=== PATIENT | female | born 1990 | race Hispanic/Latino ===

== ENCOUNTER 2020-10-16 19:21 | Emergency (ER) | payer SELFPAY ==
[2020-10-16] MEDS ORDERED: ONDANSETRON 4 MG/2 ML VIAL ONE (21:21)
[2020-10-16] MEDS ORDERED: DIAZEPAM 10 MG/2 ML INJ SYRINGE ONE (21:21)
[2020-10-16] MEDS ORDERED: dexAMETHasone 10 MG/ML VIAL ONE (21:21)
[2020-10-16] MEDS ORDERED: NA CHLORIDE 0.9% 500 ML ONE (21:22)
[2020-10-16] MEDS ORDERED: LEVALBUTEROL 1.25 MG/3 ML NEB ONE (21:22)
[2020-10-16] MEDS ORDERED: Magnesium Sulfate 2gm IVPB 2 G/50 ML BAG IV ONE (21:22)
[2020-10-16 21:50] LABS: Absolute Lymphocytes (CBC) 1.1 K/uL (0.7-4.9); Basophils % 0.3 % (0-1.3); Hematocrit 39.6 % (36.0-45.0); Lymphocytes % 19.5 % (15.3-44.8); MPV 9.1 fL (7.6-11.3); RBC Red Blood Cell Count 4.23 M/uL (3.86-4.86)
[2020-10-16 22:13] LABS: BUN Blood Urea Nitrogen 11 mg/dL (7-18); Bicarbonate 26 mmol/L (21-32); Glucose Level 97 mg/dL (74-106); Potassium 3.6 mmol/L (3.5-5.1); Sodium Level 135 mmol/L (136-145)
[2020-10-16 22:36] LABS: Urine Blood 2+ (Negative); Urine Glucose Negative (Negative); Urine Protein Trace (Negative)
--- NOTE | 2020-10-16 23:51 | EDPHYS ---
Physician Documentation [facility] Name: Xiomara London Age: 30 yrs Sex: Female : 1990 Arrival Date: 10/16/2020 Time: 19:30 Bed 5 Private MD: ED Physician Sheng Alvarez HPI: 10/16 20:29 This 30 yrs old Female presents to ER via Ambulatory with complaints of jmm COVID+, Fever, Cough, Shortness Of Breath, Chest Pain. 20:29 The patient has shortness of breath at rest. Onset: The symptoms/episode began/occurred jm gradually, 10 day(s) ago. Duration: The symptoms are continuous, and are markedly worse than the original presentation. The patient's shortness of breath is aggravated by nothing, is alleviated by nothing. Associated signs and symptoms: Pertinent positives: non-productive cough. This is a 30 year old female with a history of asthma recently diagnosed with coronavirus that presents to the ED with complaints of cough, shortness of breath beginning diagnosis for coronavirus. Complains of shortness of breath, cough, increasing chest tightness. . 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 - Social history:: Smoking status: Patient denies any tobacco usage or history of. ROS: 20:29 Constitutional: Positive for body aches, chills, fatigue, fever. jmm 20:29 Respiratory: Positive for cough, shortness of breath. 20:29 All other systems are negative. Exam: 20:29 Constitutional: This is a well developed, well nourished patient who is awake, alert, jmm and in no acute distress. Head/Face: atraumatic. Eyes: EOMI, no conjunctival erythema appreciated ENT: Moist Mucus Membranes Neck: Trachea midline, Supple Chest/axilla: Normal chest wall appearance and motion. 20:29 Abdomen/GI: Non distended, soft Back: Normal ROM 20:29 Skin: General appearance color normal MS/ Extremity: Moves all extremities, no obvious deformities appreciated, no edema noted to the lower extremities Neuro: Awake and alert, normal gait Psych: Behavior is normal, Mood is normal, Patient is cooperative and pleasant 20:29 Cardiovascular: Rate: normal, Rhythm: regular, Pulses: no pulse deficits are appreciated. 20:29 Respiratory: the patient does not display signs of respiratory distress, Respirations: normal, Breath sounds: are clear throughout. Vital Signs: 19:39 BP 120 / 90; Pulse 120; Resp 20; Temp 99.7(O); Pulse Ox 96% on R/A; Weight 74.84 kg; vg1 Height 5 ft. 2 in. (157.48 cm); Pain 10/10; 21:46 BP 119 / 86; Pulse 109; Resp 18; Pulse Ox 99% ; ea 10/17 00:25 BP 120 / 78; Pulse 80; Resp 19; Temp 98.7; Pulse Ox 99% on R/A; ea 10/16 19:39 Body Mass Index 30.18 (74.84 kg, 157.48 cm) vg1 MDM: 10/16 20:29 Patient medically screened. radha 23:48 Data reviewed: vital signs, nurses notes. Counseling: I had a detailed discussion with marco antonio the patient and/or guardian regarding: the historical points, exam findings, and any diagnostic results supporting the discharge/admit diagnosis, lab results, radiology results, the need for outpatient follow up, to return to the emergency department if symptoms worsen or persist or if there are any questions or concerns that arise at home. ED course: Patient is alert and non toxic in appearance in the ED. Pulse ox wnl. Will treat with oral abx due to the right lower lobe opacity. Patient is otherwise given strict return precautions. Patient understood and agrees with the plan of care. . 10/16 20:32 Order name: CBC with Diff [facility] 10/16 20:32 Order name: BMP [facility] 10/16 20:32 Order name: D-Dimer [facility] 10/16 22:03 Order name: D-Dimer; Complete Time: 22:03 [facility] 10/16 22:05 Order name: CBC with Automated Diff; Complete Time: 22:42 [facility] 10/16 22:13 Order name: Basic Metabolic Panel; Complete Time: 22:42 [facility] 10/16 22:03 Order name: CT Chest For PE Angio [facility] 10/16 22:37 Order name: Urine Dipstick-Ancillary; Complete Time: 22:42 [facility] 10/16 22:37 Order name: Urine --Ancillary (enter results) [facility] 10/16 23:37 Order name: Urine --Ancillary; Complete Time: 23:42 [facility] 10/16 20:32 Order name: Saline Lock; Complete Time: 21:28 [facility] 10/16 20:32 Order name: Urine Dipstick-Ancillary (obtain specimen); Complete Time: 22:36 [facility] 10/16 20:32 Order name: Urine Test (obtain specimen); Complete Time: 22:36 [facility] Administered Medications: 21:19 Drug: Xopenex (levalbuterol) (3) 1.25 mg Route: Inhalation; ea : Drug: Zofran (Ondansetron) 4 mg Route: IVP; Site: right antecubital; ea 23:40 Follow up: Response: No adverse reaction ea 21: Drug: Valium (diazepam) 2 mg Route: IVP; Site: right antecubital; ea 23:40 Follow up: Response: No adverse reaction ea : Drug: Magnesium Sulfate 1 grams Route: IVPB; Infused Over: 1 hrs; Site: right ea antecubital; 23:40 Follow up: IV Status: Completed infusion ea : Drug: Decadron - Dexamethasone 10 mg Route: IVP; Site: right antecubital; ea 10/17 00:28 Follow up: Response: No adverse reaction 10/16 21:20 Drug: NS 0.9% 500 ml Route: IV; Rate: bolus; Site: right antecubital; ea 10/17 00:28 Follow up: IV Status: Completed infusion; IV Intake: 500ml ea 00:27 Drug: Rocephin (cefTRIAXone) 1 grams Route: IV; Rate: calculated rate; Site: right ea antecubital; 00:31 Follow up: IV Status: Completed infusion ea : Drug: AZITHromycin 500 mg Route: PO; ea 00:31 Follow up: Response: No adverse reaction Disposition: 12:24 Co-signature as Attending Physician, Sheng Alvarez MD I agree with the assessment and radha plan of care. Disposition: 10/16/20 23:51 Discharged to Home. Impression: Coronavirus infection, unspecified. - Condition is Stable. - Discharge Instructions: COVID-19. - Prescriptions for Zofran ODT 4 mg Oral tablet,disintegrating - place 1 tablet by TRANSLINGUAL route every 4-6 hours; 20 tablet. Prednisone 20 mg Oral Tablet - take 3 tablet by ORAL route once daily for 5 days; 15 tablet. Zithromax Z- Jose 250 mg Oral Tablet - take 1 tablet by ORAL route as directed for 5 days Day 1 - take two (2) tablets one time. Day 2, 3, 4 , 5 take one (1) tablet once daily.; 6 tablet. Albuterol Sulfate 90 mcg/actuation - inhale 1-2 puff by INHALATION route every 4-6 hours; 1 Inhaler. - Medication Reconciliation Form, Thank You Letter, Antibiotic Education, Prescription Opioid Use form. - Follow up: Private Physician; When: 2 - 3 days; Reason: Recheck today's complaints, Continuance of care, Re-evaluation by your physician. Signatures: Dispatcher [employer] EDSheng Worley MD MD cha Mickail, Joel, PA PA jmm Antunez, Elena, RN RN Sonia Garcia RN RN vg1 Corrections: (The following items were deleted from the chart) 00:31 10/16 23:51 10/16/2020 23:51 Discharged to Home. Impression: Coronavirus infection, ea unspecified. Condition is Stable. Forms are Medication Reconciliation Form, Thank You Letter, Antibiotic Education, Prescription Opioid Use. Follow up: Private Physician; When: 2 - 3 days; Reason: Recheck today's complaints, Continuance of care, Re-evaluation by your physician. marco antonio
--- NOTE | 2020-10-16 23:51 | ER ---
Nurse's Notes [facility] Name: Xiomara London Age: 30 yrs Sex: Female : 1990 Arrival Date: 10/16/2020 Time: 19:30 Bed 5 Private MD: Diagnosis: Coronavirus infection, unspecified Presentation: 10/16 19:39 Chief complaint: Patient states: [facility] and was tested vg1 POSITIVE for COVID. Three days ago s/s became worse. Pt c/o SOB and NVD. Pt also states has lost taste and smell. Coronavirus screen: Client denies travel out of the [place] in the last 14 days. Client presents with at least one sign or symptom that may indicate coronavirus-19. Standard/surgical mask placed on the client. Ebola Screen: Patient negative for fever greater than or equal to 101.5 degrees Fahrenheit, and additional compatible Ebola Virus Disease symptoms. Initial Sepsis Screen: Does the patient meet any 2 criteria? No. Patient's initial sepsis screen is negative. Does the patient have a suspected source of infection? No. Patient's initial sepsis screen is negative. Risk Assessment: Do you want to hurt yourself or someone else? Patient reports no desire to harm self or others. Onset of symptoms was October 09, 2020. 19:39 Method Of Arrival: Ambulatory vg1 19:39 Acuity: PHYLICIA 3 vg1 Triage Assessment: 19:42 General: Appears in no apparent distress. uncomfortable, Behavior is calm, cooperative. vg1 Pain: Complains of pain in back and chest Pain currently is 10 out of 10 on a pain scale. Respiratory: Reports shortness of breath cough that is dry. 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 - Social history:: Smoking status: Patient denies any tobacco usage or history of. Screenin:45 Abuse screen: Denies threats or abuse. Nutritional screening: No deficits noted. ea Tuberculosis screening: No symptoms or risk factors identified. Fall Risk None identified. Assessment: 21:30 General: Appears in no apparent distress. Behavior is anxious. Pain: Denies pain. ea Neuro: Level of Consciousness is awake, alert, obeys commands, Oriented to person, place, time. Cardiovascular: Patient's skin is warm and dry. Respiratory: Airway is patent Respiratory effort is even, unlabored, Respiratory pattern is regular, symmetrical. Derm: Skin is pink, warm \T\ dry. 22:30 Reassessment: Patient and/or family updated on plan of care and expected duration. Pain ea level reassessed. Patient is alert, oriented x 3, equal unlabored respirations, skin warm/dry/pink. 23:30 Reassessment: Patient and/or family updated on plan of care and expected duration. Pain ea level reassessed. Patient is alert, oriented x 3, equal unlabored respirations, skin warm/dry/pink. 10/17 00:30 Reassessment: Patient and/or family updated on plan of care and expected duration. Pain ea level reassessed. Patient is alert, oriented x 3, equal unlabored respirations, skin warm/dry/pink. Discharge instruction given to patient verbalized the understanding of instruction. Pt left ED ambulatory tolerating well. Vital Signs: 10/16 19:39 BP 120 / 90; Pulse 120; Resp 20; Temp 99.7(O); Pulse Ox 96% on R/A; Weight 74.84 kg; vg1 Height 5 ft. 2 in. (157.48 cm); Pain 10/10; 21:46 BP 119 / 86; Pulse 109; Resp 18; Pulse Ox 99% ; ea 10/17 00:25 BP 120 / 78; Pulse 80; Resp 19; Temp 98.7; Pulse Ox 99% on R/A; ea 10/16 19:39 Body Mass Index 30.18 (74.84 kg, 157.48 cm) vg1 ED Course: 10/16 19:30 Patient arrived in ED. am4 19:41 Triage completed. vg1 19:42 Arm band placed on Patient placed in waiting room, Patient notified of wait time. vg1 20:24 Christian Valdes PA is PHCP. [facility] 20:24 Sheng Alvarez MD is Attending Physician. [facility] 20:56 Deborah Lord, RN is Primary Nurse. ea 21:35 Inserted saline lock: 20 gauge in right antecubital area, using aseptic technique. ea Blood collected. 21:45 Patient has correct armband on for positive identification. Bed in low position. Call ea light in reach. Side rails up X2. 10/17 00:29 No provider procedures requiring assistance completed. IV discontinued, intact, ea bleeding controlled, No redness/swelling at site. Pressure dressing applied. 02:01 CT Chest For PE Angio In Process Unspecified. EDMS Administered Medications: 10/16 20: Drug: Xopenex (levalbuterol) (3) 1.25 mg Route: Inhalation; ea : Drug: Zofran (Ondansetron) 4 mg Route: IVP; Site: right antecubital; ea 23:40 Follow up: Response: No adverse reaction ea : Drug: Valium (diazepam) 2 mg Route: IVP; Site: right antecubital; ea 23:40 Follow up: Response: No adverse reaction ea : Drug: Magnesium Sulfate 1 grams Route: IVPB; Infused Over: 1 hrs; Site: right ea antecubital; 23:40 Follow up: IV Status: Completed infusion ea : Drug: Decadron - Dexamethasone 10 mg Route: IVP; Site: right antecubital; ea 10/17 00:28 Follow up: Response: No adverse reaction ea 10/16 21:20 Drug: NS 0.9% 500 ml Route: IV; Rate: bolus; Site: right antecubital; ea 10/17 00:28 Follow up: IV Status: Completed infusion; IV Intake: 500ml ea 00: Drug: Rocephin (cefTRIAXone) 1 grams Route: IV; Rate: calculated rate; Site: right ea antecubital; 00:31 Follow up: IV Status: Completed infusion ea 00: Drug: AZITHromycin 500 mg Route: PO; ea 00:31 Follow up: Response: No adverse reaction ea Intake: 00:28 IV: 500ml; Total: 500ml. ea Outcome: 10/16 23:51 Discharge ordered by MD. bernard 10/17 00:29 Discharged to home ambulatory, with family. ea Condition: stable Discharge instructions given to patient, Instructed on discharge instructions, follow up and referral plans. medication usage, Demonstrated understanding of instructions, follow-up care, medications, Prescriptions given X 4. 00:31 Patient left the ED. ea Signatures: Dispatcher [employer] EDChristian Oh PA PA jmm Antunez, Elena, RN RN Sonia Garcia RN RN vg1 Keely Lynn am
[2020-10-17] MEDS ORDERED: CEFTRIAXONE/SWI 1gm 1 GM/10 ML SYR ONE (00:28)
[2020-10-17] MEDS ORDERED: AZITHROMYCIN 250 MG TAB ONE (00:28)
[2020-10-17 00:40] VITALS: O2SAT 99
[2020-10-17 00:42] VITALS: BP 120/78; TEMP 98.7
--- NOTE | 2020-10-17 10:51 | RAD REPORT ---
EXAM DESCRIPTION: CT - Chest For Pe Angio - 10/17/2020 6:49 am CLINICAL HISTORY: SOB. COMPARISON: None. TECHNIQUE: CTA of the chest was performed following intravenous administration of iodinated contrast . Axial soft tissue and bone window, and coronal and sagittal soft tissue window reconstructions were created and sent to PACS. 3D postprocessing was performed on an independent workstation, with images sent to PACS for subsequen t review. This exam was performed according to our departmental dose-optimization program, which includes autom ated exposure control, adjustment of the mA and/or kV according to patient size and/or use of iterati ve reconstruction technique. FINDINGS: Vascular: The pulmonary arteries are well-opacified to the segmental level. No CT evidence of acute pulmonary thromboembolism. No evidence of aortic aneurysm or dissection. Lungs and pleura: Mild motion degradation through the lungs. Moderate right lower lobe opacification. Mild suspected atelectasis in the left lower lobe. Small opacity along the periphery of the right up per lobe, and in the left upper lobe adjacent to the interlobar fissure. No pleural effusion. No pneu mothorax. Mediastinum and neck: No mediastinal lymphadenopathy by CT size criteria. Unremarkable appearance of the thyroid gland. Cardiac: No cardiomegaly or pericardial effusion. Abdomen: No significant upper abdominal abnormality identified. Musculoskeletal: No concerning osseous abnormality. IMPRESSION: 1. No CT evidence of acute pulmonary thromboembolism. 2. Moderate right lower lobe opacity, concerning for infectious infiltrate. 3. Small opacities in the right and left upper lobes. Correlate for infectious/inflammatory etiolog y. Electronically signed by: Lisa Wilson MD 10/16/2020 11:35 PM CDT Due to temporary technical issues with the PACS/Fluency reporting system, reports are being signed by the in house radiologist without review as a courtesy to ensure prompt reporting. The interpreting r adiologist is fully responsible for the content of the report.
[2020-10-24] MEDS ORDERED: POTASSIUM CL SA 10 MEQ TAB PO ONE (18:45)
== END 2020-10-17 00:31 | disposition home or self-care (01) ==
LOC: ER 19:21
DX: U07.1 COVID-19 (principal); J45.909 Unspecified asthma, uncomplicated
CPT/HCPCS: 36415; 71275; 80048; 81003; 81025; 85025; 85379; 96361; 96365; 96366; 96375; 99284; J0696; J1100; J2405; J3360; J3475; J7040; Q9967